=== PATIENT | female | born 1990 | race Caucasian/White ===

== ENCOUNTER 2017-07-07 10:31 | Outpatient (CLI) | payer OTHER | END 2017-07-07 10:38 | disposition home or self-care (01) | LOC: SONOGRAMA 10:31 | DX: L68.0 Hirsutism (principal) ==

== ENCOUNTER 2021-07-26 09:44 | Outpatient (CLI) | payer OTHER | END 2021-07-26 09:54 | disposition home or self-care (01) | LOC: SONOGRAMA 09:44 | PROVIDERS: ATTEND Obstetrics & Gynecology | DX: N83.8 Other noninflammatory disorders of ovary, fallopian tube and broad ligament (principal); L68.0 Hirsutism; E02 Subclinical iodine-deficiency hypothyroidism ==

== ENCOUNTER 2021-08-08 08:05 | Outpatient (CLI) | payer OTHER | END 2021-08-08 08:10 | disposition home or self-care (01) | LOC: SONOGRAMA 08:05 | PROVIDERS: ATTEND Pathology Anatomic Pathology & Clinical Pathology | DX: E04.2 Nontoxic multinodular goiter (principal) ==

== ENCOUNTER 2024-07-14 14:35 | Outpatient (CLI) | payer OTHER | END 2024-07-14 14:37 | disposition home or self-care (01) | LOC: SONOGRAMA 14:35 | PROVIDERS: ATTEND Pathology Anatomic Pathology & Clinical Pathology | DX: E04.2 Nontoxic multinodular goiter (principal); D34 Benign neoplasm of thyroid gland; E07.89 Other specified disorders of thyroid ==